=== PATIENT | male | born 1970 | race Hispanic/Latino ===

== ENCOUNTER → 2017-09-27 | Day surgery (SDC) | payer BC ==
[~2017-09-27] MED LIST: ALLEGRA ALLERGY60 MG PO; CEFAZOLIN SOD 1 GM VIAL ONE; DEXAMETHASONE SOD PHOS INJ 4 MG/ML VIAL ONE; DIFLUCAN200 MG PO; FENTANYL CITRATE/PF 100MCG/2 ML INJ ONE; IMMODIUM PO; LIDOCAINE HCL 2% LOCAL INJ 5 ML SDV VIAL INJ ONE; LOSARTAN POTASS50 MG PO; MIDAZOLAM HCL 2 MG/2 ML VIAL ONE; MORPHINE SULFATE 2 MG/ML SYR ONE; MUPIROCIN 2% OINT 22 GM TUBE ONE; ONDANSETRON HCL INJ 2 MG/ML VIAL ONE; PROCTOZONE CREAM RC; PROPOFOL IV EMULSION 10 MG/ML 20 ML VIAL ONE; SEVOFLURANE INHAL SOLN 250 ML PEN BTL ONE; SUDAFED 12 HOU120 MG; VIBERZI PO
--- NOTE | 2017-09-27 07:41 | Operative Report ---
DATE OF PROCEDURE: September 27, 2017 ACADEMIC SERVICES PROFESSIONAL: Yung Luis PA-C The patient was brought to the operating room for induction of anesthesia. Throughout this case, my PA's assistance was necessary for retraction of soft tissue and positioning of the extremity. This allows for efficient and technically successful execution of the operation and is considered medically necessary. PREOPERATIVE DIAGNOSIS: Right carpal tunnel syndrome. POSTOPERATIVE DIAGNOSIS: Right carpal tunnel syndrome. PROCEDURE: Right endoscopic carpal tunnel release. INDICATIONS: The patient is a 47-year-old gentleman who has clinic signs and symptoms consistent with right carpal tunnel syndrome. He has failed conservative management and feels the symptoms are significantly bothering him when he does any heavy labor with his right hand. The risks and benefits of an endoscopic versus open carpal tunnel release have been explained. He states he understands and wishes to proceed. PROCEDURE: The patient was brought to the operating room. He was placed under general anesthetic. Prophylactic antibiotics were given in the holding area. The upper extremity was prepped and draped in a sterile manner. A well-padded tourniquet was placed on the upper arm and inflated to 250 mmHg. An operative time out was performed. A 1-cm incision was made over the flexion crease of the wrist. The palmaris longus was retracted to the radial side of the wound. The flexor retinaculum was elevated and incised with a pair of sharp tenotomy scissors. An elevator was used to tease the tenosynovium off the undersurface of the transverse carpal ligament. Dilators were placed, and the hook of the hamate was palpated. The MicroAire endoscope was then placed into the carpal tunnel. The undersurface of the ligament was cleanly visualized without evidence of soft tissue interposition. The knife was deployed, and the ligament was cut from distal to proximal. Full-thickness cut was noted. The proximal retinaculum was then incised under direct visualization using a pair of blunt Metzenbaum scissors. The wound was irrigated and closed with 2 interrupted 4-0 nylon stitches. A sterile bandage was applied, and the patient was extubated. The patient was transferred to the recovery room in stable condition. Blood loss was less than 5 mL, and at the end of the procedure needle and sponge counts were correct. Job#: [id number] CHAPIS
== END | disposition home or self-care (01) ==
LOC: OR 05:14
PROVIDERS: ATTEND Specialist
DX: G56.01 Carpal tunnel syndrome, right upper limb (principal); R09.82 Postnasal drip; I10 Essential (primary) hypertension; R00.1 Bradycardia, unspecified; E78.5 Hyperlipidemia, unspecified; K58.9 Irritable bowel syndrome, unspecified; Z01.810 Encounter for preprocedural cardiovascular examination
CPT/HCPCS: 29848; 93005; J0690; J1100; J2001; J2250; J2270; J2405

== ENCOUNTER → 2018-12-27 | Outpatient (CLI) | payer BC ==
[~2018-12-27] MED LIST changes: -CEFAZOLIN SOD 1 GM VIAL ONE; -DEXAMETHASONE SOD PHOS INJ 4 MG/ML VIAL ONE; -FENTANYL CITRATE/PF 100MCG/2 ML INJ ONE; +GADOBENATE DIMEGLUMINE 1 ML IV ONE; +IOPAMIDOL 300 MG/ML 15ML VIAL IT ONE; +LIDOCAINE HCL 1% LOCAL INJ 20 ML VIAL ONE; -LIDOCAINE HCL 2% LOCAL INJ 5 ML SDV VIAL INJ ONE; -MIDAZOLAM HCL 2 MG/2 ML VIAL ONE; -MORPHINE SULFATE 2 MG/ML SYR ONE; -MUPIROCIN 2% OINT 22 GM TUBE ONE; -ONDANSETRON HCL INJ 2 MG/ML VIAL ONE; -PROPOFOL IV EMULSION 10 MG/ML 20 ML VIAL ONE; -SEVOFLURANE INHAL SOLN 250 ML PEN BTL ONE
--- NOTE | 2018-12-27 09:32 | Diagnostic Imaging Report ---
PROCEDURE: Right wrist arthrogram Procedural Personnel Attending physician(s): Perri Manning MD Fellow physician(s): None Resident physician(s): None Advanced practice provider(s): None Pre-procedure diagnosis: Right wrist pain Post-procedure diagnosis: Same Indication: Right wrist pain, arthrogram prior to MRI arthrogram. Additional clinical history: None Complications: No immediate complications. IMPRESSION: Fluoroscopically guided right wrist arthrogram. PLAN: Patient was transported to MRI. PROCEDURE SUMMARY: - Fluoroscopically guided right wrist arthrogram. PROCEDURE DETAILS: Pre-procedure Consent: Informed consent for the procedure including risks, benefits and alternatives was obtained and time-out was performed prior to the procedure. Preparation: The site was prepared and draped using maximal sterile barrier technique including cutaneous antisepsis. Anesthesia/sedation Level of anesthesia/sedation: Local 1% lidocaine Wrist arthrogram [employer] Hy[employer]icker image was obtained. Following 1% local lidocaine anesthesia, a 25-gauge needle was advanced to the radial scaphoid joint. 0.5 cc of Isovue contrast was administered to confirm intra-articular positioning. The MRI arthrogram cocktail was made with 10 cc normal saline, 0.1 cc gadolinium base contrast material, and 2 cc Isovue 370. Subsequently, 1.5 cc of this solution was injected into the joint under fluoroscopic guidance. The needle was removed and hemostasis easily achieved. Sterile bandage applied. Radiation Dose Fluoroscopy time (minutes): 1.8 Reference air kerma (mGy): 1.86 Additional Details Additional description of procedure: None Equipment details: None Specimens removed: None Estimated blood loss (mL): Less than 10 Attestation Signer name: Perri Manning MD I attest that I was present for the entire procedure. I reviewed the stored images and agree with the report as written. Signed by: Perri Manning MD on 12/27/2018 9:28 AM
--- NOTE | 2018-12-27 10:36 | Diagnostic Imaging Report ---
TECHNIQUE: Magnetic resonance imaging of the RIGHT WRIST was performed after injected contrast, on a 1.5 glenn magnet. HISTORY: Pain COMPARISON: None available. FINDINGS: Bone and bone marrow: No focal or infiltrative bone marrow replacing abnormality. No acute fracture or osteonecrosis. The osseous alignment is within normal limits. Joints: Cartilage loss on the ulnar side of the lunate with subchondral edema. The joints spaces are well maintained. Ligaments: Scapholunate: Intact Lunotriquetral: Intact Triangular fibrocartilage complex: Intact Extrinsic ligaments: Limited evaluation. Tendons: The flexor and extensor tendons are intact. Carpal tunnel: The median nerve is within normal limits. Other soft tissues: Otherwise, unremarkable. 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 TFCC and intrinsic ligaments intact. Signed by: Dr. Alejandro Oh M.D. on 12/27/2018 10:32 AM
== END ==
LOC: DX 07:07
PROVIDERS: ATTEND Specialist
DX: M25.331 Other instability, right wrist (principal)
CPT/HCPCS: 25246; 73222; 77002; A9577; J2001; Q9967; 20605; 20610